=== PATIENT | male | born 1940 | race Caucasian/White ===

== ENCOUNTER 2020-10-15 01:20 | Outpatient (CLI) | payer OTHER, SELFPAY ==
[2020-10-15 09:07] LABS: HCT 43.8 % (40.0-50.0); HGB 14.3 g/dL (13.5-17.5); MCH 29.8 pg (27.0-33.0); MCHC 32.6 % (32.0-36.0); MCV 91.3 fL (80-95); MPV 8.3 fL (8.0-11.0); Platelet Count 380 10^3/uL (130-400); RDW 12.8 % (11.8-14.1); RDW-SD 43.1 fL; WBC 8.92 10^3/uL (4.4-10.8)
[2020-10-15 10:45] LABS: Calculated LDL 84 mg/dL (<100); Cholesterol 164 mg/dL (<200); HDL Cholesterol 69 mg/dL (40-60); Triglyceride 58 mg/dL (<150)
== END 2020-10-15 01:21 | disposition home or self-care (01) ==
LOC: LBO 01:20
PROVIDERS: PCP Internal Medicine; Visit Provider Internal Medicine
DX: E78.00 Pure hypercholesterolemia, unspecified (principal); D47.3 Essential (hemorrhagic) thrombocythemia
CPT/HCPCS: 36415; 80061; 85027

== ENCOUNTER 2021-12-29 04:45 | Outpatient (CLI) | payer OTHER, SELFPAY ==
[2021-12-29 09:33] LABS: Anion Gap 5.7 mmol/L (3-11); BUN 23 mg/dL (7-18); CO2 29.3 mmol/L (21.0-32.0); CREATININE 1.2 mg/dL (0.70-1.30); Calcium 9.4 mg/dL (8.5-10.1); Calculated LDL 86 mg/dL (<100); Chloride 102 mmol/L (98-107); Cholesterol 170 mg/dL (<200); Glucose 100 mg/dL (74-106); HDL Cholesterol 72 mg/dL (40-60); Potassium 4.6 mmol/L (3.5-5.1); Sodium 137 mmol/L (136-145); Triglyceride 62 mg/dL (<150)
== END 2021-12-29 04:46 | disposition home or self-care (01) ==
LOC: LBO 04:45
PROVIDERS: PCP Internal Medicine; Referring Provider Internal Medicine; Visit Provider Internal Medicine
DX: I10 Essential (primary) hypertension (principal); E78.00 Pure hypercholesterolemia, unspecified
CPT/HCPCS: 36415; 80048; 80061

== ENCOUNTER 2022-09-18 09:02 | Outpatient (CLI) | payer OTHER, SELFPAY ==
--- NOTE | 2022-09-18 09:00 | RT.EKG_ITS ---
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
== END 2022-09-18 09:03 | disposition home or self-care (01) ==
LOC: DI.KIM 09:03
PROVIDERS: PCP Family Medicine; Visit Provider Family Medicine
DX: Z01.818 Encounter for other preprocedural examination (principal)
CPT/HCPCS: 93010

== ENCOUNTER → 2023-01-09 02:14 | Outpatient (CLI) | payer OTHER, SELFPAY ==
--- NOTE | 2023-01-09 08:00 | DI.RAD_ITS ---
Exam(s) XR CHEST 2V PA LATERAL EXAM: XR CHEST 2V PA LATERAL CLINICAL HISTORY: Chronic productive cough,r05.3 TECHNIQUE: 2D digital imaging was performed of the chest. Two images were obtained. PA and lateral views were obtained. COMPARISON: No exams were available for comparison FINDINGS: MEDIASTINUM: There is a small hiatal hernia. HEART: Normal. PULMONARY VASCULATURE: Normal. LUNGS: Clear. 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 BONE:Within normal limits for the patient's age. There are old healed right rib fractures. OTHER FINDINGS:Normal. IMPRESSION: No acute pulmonary findings. DATA REPOSITORY: RADIATION DOSE DELIVERED:
== END ==
PROVIDERS: PCP Family Medicine; Visit Provider Family Medicine
DX: R05.3 Chronic cough (principal)
CPT/HCPCS: 71046

== ENCOUNTER 2024-07-11 11:46 | Outpatient (CLI) | payer OTHER, SELFPAY ==
[2024-07-11 11:51] LABS: ALT 25 U/L (16-63); AST 24 U/L (15-37); Albumin 3.5 g/dL (3.4-5.0); Alkaline Phosphatase 81 U/L (46-116); BUN 21 mg/dL (7-18); Bilirubin, Total 0.4 mg/dL (0.2-1.0); Calcium 9.5 mg/dL (8.5-10.1); Calculated LDL 77 mg/dL (<100); Chloride 101 mmol/L (98-107); Cholesterol 157 mg/dL (<200); Glucose 100 mg/dL (74-106); HDL Cholesterol 66 mg/dL (>or=40); Potassium 4.2 mmol/L (3.5-5.1); Sodium 137 mmol/L (136-145); Total Protein 7.8 g/dL (6.4-8.2); Triglyceride 71 mg/dL (<150); Vitamin B12 1023 pg/mL (193-986)
== END 2024-07-11 11:47 | disposition home or self-care (01) ==
LOC: LBO 11:47
PROVIDERS: PCP Family Medicine; Visit Provider Family Medicine
DX: E78.00 Pure hypercholesterolemia, unspecified (principal); I10 Essential (primary) hypertension
CPT/HCPCS: 36415; 80053; 80061; 82607